=== PATIENT | female | born 1990 | race American Indian/Alaskan Native ===

== ENCOUNTER 2018-07-09 14:42 | Emergency (ER) | payer MEDICAID ==
[2018-07-09 16:49] LABS: Basophils # (Auto) 0.1 K/mm3 (0.0-0.1); Basophils % (Auto) 0.8 % (0.0-1.8); Eosinophils # (Auto) 0.3 K/mm3 (0.0-0.4); Eosinophils % (Auto) 3.7 % (0.0-4.3); Hematocrit 28.2 % (30.3-42.9); Hemoglobin 8.9 gm/dl (10.1-14.3); Lymphocytes # (Auto) 2.5 K/mm3 (1.2-5.4); Lymphocytes % (Auto) 36.1 % (13.4-35.0); Mean Corpuscular HGB Conc 32 % (30-34); Mean Corpuscular Volume 73 fl (79-97); Monocytes # (Auto) 0.5 K/mm3 (0.0-0.8); Monocytes % (Auto) 7.4 % (0.0-7.3); Platelet Count 265 K/mm3 (140-440); Red Blood Count 3.88 M/mm3 (3.65-5.03)
[2018-07-09 16:59] LABS: Mean Corpuscular Hemoglobin 23 pg (28-32); Red Cell Distribution Width 22.7 % (13.2-15.2)
[2018-07-09 17:11] LABS: BUN/Creatinine Ratio 27; Blood Urea Nitrogen 16 mg/dL (7-17); Calcium 9.2 mg/dL (8.4-10.2); Hemolysis Index 6
[2018-07-09] MEDS ORDERED: HALDOL IM PRN (17:14)
[2018-07-09] MEDS ORDERED: ATIVAN IM PRN (17:14)
--- NOTE | 2018-07-09 17:15 | Emergency Department Report ---
ED Psych HPI - General Chief Complaint: Psych Stated Complaint: BIPOLAR EPISODE Time Seen by Provider: 07/09/18 17:07 Source: patient, EMS (ems notes not available at time of chart dictation), RN notes reviewed, old records reviewed Mode of arrival: Stretcher Limitations: Other (patient disorganized and actively psychotic) - History of Present Illness Initial Comments: The cyst at 28-year-old female. Past medical history includes bipolar disorder, schizophrenia, hypertension, iron deficiency anemia. Patient brought to the hospital by EMS for disorganized behavior. The patient is disorganized and psychotic. She cannot tell me who contacted 911 . no family, friends available at this point in time for collateral information. Patient indicates that her mother is Don. She indicates that she has not overdosed. The patient has difficulty answering open and did enclose any questions secondary to her psychosis. She does follow commands. P atient not able to describe exacerbating or relieving factors, radiation of her symptoms, qualitative nature of her symptoms. MD Complaint: other -: unknown Associated Psychiatric Symptoms: other Quality: other Worsens With: other Associated Symptoms: other - Related Data Previous Rx's Medication Instructions Recorded Last Taken Type Famotidine [Pepcid] 20 mg PO BID #30 tablet 05/25/18 Unknown Rx Ferrous Sulfate 325 mg PO DAILY #30 tablet.dr 05/25/18 Unknown Rx Mag Hydrox/Aluminum Hyd/Simeth 20 ml PO QID PRN #1 bottle 05/25/18 Unknown Rx [Maalox Advanced Suspension] Ondansetron [Zofran Odt] 4 mg PO Q8HR PRN #20 tab.rapdis 05/25/18 Unknown Rx Allergies Allergy/AdvReac Type Severity Reaction Status Date / Time risperidone [From Risperdal] Allergy Hives Verified 05/25/18 01:07 Sulfa (Sulfonamide Allergy Hives Verified 05/25/18 01:06 Antibiotics) ED Review of Systems ROS: Stated complaint: BIPOLAR EPISODE Other details as noted in HPI Comment: Unobtainable due to pts medical conditions ED Past Medical Hx - Past Medical History Hx Hypertension: Yes Hx Psychiatric Treatment: Yes (Bipolar, Schizophrenia) Additional medical history: Obesity. Iron deficiency anemia - Social History Smoking Status: Current Every Day Smoker Substance Use Type: Marijuana - Medications Home Medications: Home Medications Medication Instructions Recorded Confirmed Last Taken Type Famotidine [Pepcid] 20 mg PO BID #30 tablet 05/25/18 Unknown Rx Ferrous Sulfate 325 mg PO DAILY #30 tablet.dr 05/25/18 Unknown Rx Mag Hydrox/Aluminum Hyd/Simeth 20 ml PO QID PRN #1 bottle 05/25/18 Unknown Rx [Maalox Advanced Suspension] Ondansetron [Zofran Odt] 4 mg PO Q8HR PRN #20 tab.rapdis 05/25/18 Unknown Rx ED Physical Exam - General Limitations: Other (patient psychotic and disorganized) General appearance: alert, anxious - Head Head exam: Present: atraumatic, normocephalic - Eye Eye exam: Present: normal appearance, EOMI. Absent: nystagmus - ENT ENT exam: Present: normal exam, normal orophraynx, mucous membranes moist, normal external ear exam - Neck Neck exam: Present: normal inspection, full ROM. Absent: tenderness, meningismus - Respiratory Respiratory exam: Present: normal lung sounds bilaterally. Absent: respiratory distress - Cardiovascular Cardiovascular Exam: Present: regular rate, normal rhythm, normal heart sounds. Absent: bradycardia, tachycardia, irregular rhythm, systolic murmur, diastolic murmur, rubs, gallop - GI/Abdominal GI/Abdominal exam: Present: soft. Absent: distended, tenderness, guarding, rebound, rigid, pulsatile mass - Extremities Exam Extremities exam: Present: normal inspection, full ROM, other (2+ pulses noted in the bilateral upper, lower extremities. Compartments soft. No long bony ten derness. The pelvis is stable.). Absent: pedal edema, joint swelling, calf tenderness - Back Exam Back exam: Present: normal inspection, full ROM. Absent: tenderness, CVA tenderness (R), paraspinal tenderness, vertebral tenderness - Neurological Exam Neurological exam: Present: other (patient is awake. Patient follows commands. Patient speech is nonsensical, talking about how her mother is Don, and in talking about a prom dance. Moving 4 extremities, no obvious facial droop, extraocular movements are intact, a detailed neurologic examination is not possible secondary to patient's psychosis and inability to cooperate and participate.) - Psychiatric Psychiatric exam: Present: anxious - Skin Skin exam: Present: warm, dry, intact, normal color. Absent: rash ED Course Vital Signs 07/09/18 07/09/18 15:37 15:57 Temperature 99.1 F 99.1 F Pulse Rate 78 78 Respiratory 18 20 Rate Blood Pressure 132/83 Blood Pressure 132/83 [Left] O2 Sat by Pulse 99 99 Oximetry - Reevaluation(s) Reevaluation #1: 07/09/18 17:32 Differential diagnosis, including not limited to: Decompensated psychosis, urinary tract infection, medical clearance for psychiatric placement Assessment and plan 28-year-old female who appears to be disorganized, psychotic, nonfocal motor examination, chronic microcytic anemia, does not appear to be acutely decompensated. We'll dynamically stable with an unremarkable physical examination. Patient placed on a 1013. Screening laboratory studies obtained. As the medications needed. We will continue the patient's home medications. Psychiatry consult has been requested to obtain collateral information and assist in the disposition for this acutely psychotic patient who would benefit from inpatient psychiatric stabilization. ED Medical Decision Making - Lab Data Result diagrams: 07/09/18 16:35 07/09/18 16:35 Vital Signs 07/09/18 07/09/18 15:37 15:57 Temperature 99.1 F 99.1 F Pulse Rate 78 78 Respiratory 18 20 Rate Blood Pressure 132/83 Blood Pressure 132/83 [Left] O2 Sat by Pulse 99 99 Oximetry Lab Results 07/09/18 07/09/18 07/09/18 Range/Units 16:27 16:35 16:35 WBC (4.5-11.0) K/mm3 RBC (3.65-5.03) M/mm3 Hgb (10.1-14.3) gm/dl Hct (30.3-42.9) % MCV (79-97) fl MCH (28-32) pg MCHC (30-34) % RDW (13.2-15.2) % Plt Count (140-440) K/mm3 Lymph % (Auto) (13.4-35.0) % [place] % (Auto) (0.0-7.3) % Eos % (Auto) (0.0-4.3) % Baso % (Auto) (0.0-1.8) % Lymph # (1.2-5.4) K/mm3 [place] # (0.0-0.8) K/mm3 Eos # (0.0-0.4) K/mm3 Baso # (0.0-0.1) K/mm3 Seg Neutrophils % (40.0-70.0) % Seg Neutrophils # (1.8-7.7) K/mm3 Sodium (137-145) mmol/L Potassium (3.6-5.0) mmol/L Chloride (98-107) mmol/L Carbon Dioxide (22-30) mmol/L Anion Gap mmol/L BUN (7-17) mg/dL Creatinine (0.7-1.2) mg/dL Estimated GFR ml/min BUN/Creatinine Ratio % Glucose (65-100) mg/dL Calcium (8.4-10.2) mg/dL Urine Bilirubin Neg (Negative) Urine RBC (Auto) 1.0 (0.0-6.0) /HPF U Epithel Cells (Auto) 1.0 (0-13.0) /HPF Salicylates < 0.3 L (2.8-20.0) mg/dL Acetaminophen < 5.0 L (10.0-30.0) ug/mL Plasma/Serum Alcohol (0-0.07) % 07/09/18 07/09/18 07/09/18 Range/Units 16:35 16:35 16:35 WBC 6.9 (4.5-11.0) K/mm3 RBC 3.88 (3.65-5.03) M/mm3 Hgb 8.9 L (10.1-14.3) gm/dl Hct 28.2 L (30.3-42.9) % MCV 73 L (79-97) fl MCH 23 L (28-32) pg MCHC 32 (30-34) % RDW 22.7 H (13.2-15.2) % Plt Count 265 (140-440) K/mm3 Lymph % (Auto) 36.1 H (13.4-35.0) % [place] % (Auto) 7.4 H (0.0-7.3) % Eos % (Auto) 3.7 (0.0-4.3) % Baso % (Auto) 0.8 (0.0-1.8) % Lymph # 2.5 (1.2-5.4) K/mm3 [place] # 0.5 (0.0-0.8) K/mm3 Eos # 0.3 (0.0-0.4) K/mm3 Baso # 0.1 (0.0-0.1) K/mm3 Seg Neutrophils % 52.0 (40.0-70.0) % Seg Neutrophils # 3.6 (1.8-7.7) K/mm3 Sodium 144 (137-145) mmol/L Potassium 4.1 (3.6-5.0) mmol/L Chloride 106.3 (98-107) mmol/L Carbon Dioxide 24 (22-30) mmol/L Anion Gap 18 mmol/L BUN 16 (7-17) mg/dL Creatinine 0.6 L (0.7-1.2) mg/dL Estimated GFR > 60 ml/min BUN/Creatinine Ratio 27 % Glucose 94 (65-100) mg/dL Calcium 9.2 (8.4-10.2) mg/dL Urine Bilirubin (Negative) Urine RBC (Auto) (0.0-6.0) /HPF U Epithel Cells (Auto) (0-13.0) /HPF Salicylates (2.8-20.0) mg/dL Acetaminophen (10.0-30.0) ug/mL Plasma/Serum Alcohol < 0.01 (0-0.07) % Critical care attestation.: If time is entered above; I have spent that time in minutes in the direct care of this critically ill patient, excluding procedure time. ED Disposition Clinical Impression: Medical clearance for psychiatric admission Disposition: DC/TX-65 PSY HOSP/PSY UNIT Is pt being admited?: No Does the pt Need Aspirin: No Condition: Good Referrals: PRIMARY CARE, [Primary Care Provider] - 3-5 Days
[2018-07-09 17:29] LABS: Bilirubin,Urine NEG (Negative); Blood,Urine NEG (Negative); Color,Urine Yellow (Yellow); Mucus,Urine FEW /HPF; Protein,Urine <15 mg/dL mg/dL (Negative); Urobilinogen,Urine < 2.0 mg/dL (<2.0)
[2018-07-09] MEDS ORDERED: ZOFRAN ODT PO PRN (17:32)
[2018-07-09] MEDS ORDERED: ALUM-MAG HYDROX-SIMETH 200-200-20MG/5ML PO PRN (17:32)
[2018-07-09 17:45] LABS: Amphetamine Screen,Urine PRESUMPTIVE NEGATIVE; Benzodiazepines Screen,Urine PRESUMPTIVE NEGATIVE; Cannabinoid Screen,Urine PRESUMPTIVE NEGATIVE; Cocaine Screen,Urine PRESUMPTIVE NEGATIVE; Methadone Screen,Urine PRESUMPTIVE NEGATIVE; Opiate Screen,Urine PRESUMPTIVE NEGATIVE
[2018-07-09] MEDS ORDERED: NON-FORMULARY (Ferrous Sulfate [Ferrous Sulfate] 325 MG) PO SCH (17:45)
[2018-07-09 19:33] LABS: HCG Qualitative,Urine Negative (Negative)
[2018-07-09] MEDS ORDERED: PEPCID PO SCH (22:00)
[2018-07-10 09:24] VITALS: BP 128/81
[2018-07-10] MEDS ORDERED: FEOSOL PO SCH (10:00)
--- NOTE | 2018-07-10 10:08 | Consultation ---
History of Present Illness - Reason for Consult Consult date: 07/10/18 Reason for consult: Mental Health Evaluation Requesting physician: COLEEN MAO - Chief Complaint Chief complaint: "What is going on" - History of Present Psychiatric Illness 28 y.o. AA female who presented to the ER for bizarre behavior. Today the patient is calm, but disorganized during the assessment. She was asked several q uestions about her mental health and why she came to the hospital, her answers were not logical. She had to be redirected multiple times to keep her on topic. She was observed looking around throughout the interview possibly responding to some type stimuli. The patient is a poor historian at this time. Medications and Allergies Allergies Allergy/AdvReac Type Severity Reaction Status Date / Time risperidone [From Risperdal] Allergy Hives Verified 05/25/18 01:07 Sulfa (Sulfonamide Allergy Hives Verified 05/25/18 01:06 Antibiotics) Home Medications Medication Instructions Recorded Confirmed Last Taken Type Famotidine [Pepcid] 20 mg PO BID #30 tablet 05/25/18 Unknown Rx Ferrous Sulfate 325 mg PO DAILY #30 tablet.dr 05/25/18 Unknown Rx Mag Hydrox/Aluminum Hyd/Simeth 20 ml PO QID PRN #1 bottle 05/25/18 Unknown Rx [Maalox Advanced Suspension] Ondansetron [Zofran Odt] 4 mg PO Q8HR PRN #20 tab.rapdis 05/25/18 Unknown Rx Active Meds: Active Medications Al Hydrox/Mg Hydrox/Simethicone (Alum-Mag Hydrox-Simeth [id number]/5ml) 20 ml PO QID PRN PRN Reason: Indigestion Famotidine (Pepcid) 20 mg PO BID ANAID Last Admin: 07/09/18 22:18 Dose: Not Given Documented by: Ferrous Sulfate (Feosol) 325 mg PO QDAY ANAID Haloperidol Lactate (Haldol) 5 mg IM Q6HR PRN PRN Reason: Agitation Last Admin: 07/09/18 21:28 Dose: 5 mg Documented by: Lorazepam (Ativan) 2 mg IM Q4HR PRN PRN Reason: Agitation Last Admin: 07/09/18 21:25 Dose: 2 mg Documented by: Ondansetron HCl (Zofran Odt) 4 mg PO Q8HR PRN PRN Reason: Nausea And Vomiting Past psychiatric history - Past Medical History Past Medical History: other (Unable to obatin) Past Surgical History: Other (Unable to obtain) - past Psychiatric treatment and history psychiatric treatment history: Several inpatient psy settings per the patient. Unable to obtain a [facility] psy hx. - Social History Social history: other (Unable to obtain) Mental Status Exam - Vital signs Last Vital Signs Temp 98.4 F 07/10/18 08:00 Pulse 89 07/10/18 08:00 Resp 16 07/10/18 08:00 BP 128/81 07/10/18 08:00 Pulse Ox 100 07/10/18 08:00 - Exam Narrative exam: MSE: Appearance: calm Behavior: poor eye contact Speech: regular rate and tone Mood: preoccupied Affect: congruent to mood Thought Process: disorganized, loose associations Thought Content: denies SI/HI's and AVH's, possible paranoia Motor Activity: lying in bed Cognition: A/O x3 Insight: poor Judgment: poor Results Result Diagrams: 07/09/18 16:35 07/09/18 16:35 Abnormal lab results 07/09/18 07/09/18 07/09/18 Range/Units 16:35 16:35 16:35 Hgb (10.1-14.3) gm/dl Hct (30.3-42.9) % MCV (79-97) fl MCH (28-32) pg RDW (13.2-15.2) % Lymph % (Auto) (13.4-35.0) % [place] % (Auto) (0.0-7.3) % Creatinine 0.6 L (0.7-1.2) mg/dL Salicylates < 0.3 L (2.8-20.0) mg/dL Acetaminophen < 5.0 L (10.0-30.0) ug/mL 07/09/18 Range/Units 16:35 Hgb 8.9 L (10.1-14.3) gm/dl Hct 28.2 L (30.3-42.9) % MCV 73 L (79-97) fl MCH 23 L (28-32) pg RDW 22.7 H (13.2-15.2) % Lymph % (Auto) 36.1 H (13.4-35.0) % [place] % (Auto) 7.4 H (0.0-7.3) % Creatinine (0.7-1.2) mg/dL Salicylates (2.8-20.0) mg/dL Acetaminophen (10.0-30.0) ug/mL All other labs normal. Assessment and Plan Assessment and plan: Impression: Unspecified Psychosis. Today the patient is calm, but disorganized during the assessment. UDS is negative. DDx: Bipolar DO with psychosis, Schizophrenia Recommendation/Plan: Continue 1013. Dispo: The patient was accepted at [facility] for inpatient psy services today. Staffed with Dr Calixto.
== END 2018-07-10 13:00 ==
LOC: EEVIPCON 14:42 → ED 14:42
DX: F31.9 Bipolar disorder, unspecified (principal); I10 Essential (primary) hypertension; F17.200 Nicotine dependence, unspecified, uncomplicated; Z88.2 Allergy status to sulfonamides; Z86.2 Personal history of diseases of the blood and blood-forming organs and certain disorders involving the immune mechanism; E66.9 Obesity, unspecified; Z68.24 Body mass index [BMI] 24.0-24.9, adult
CPT/HCPCS: 36415; 80048; 80307; 81001; 81025; 82550; 85025; 96372; 99285; G0480; J1630; J2060; 80320